=== PATIENT | female | born 1995 ===

== ENCOUNTER 2017-07-07 13:20 | Inpatient (IN) | payer OTHER ==
[~2017-07-07] VITALS: Ht 167.6 cm; Wt 55.8 kg
[2017-07-09] MEDS ORDERED: AMOX1TAB5 PO (15:00)
== END 2017-07-09 22:15 | disposition home or self-care (01) | DRG 343 ==
LOC: ER 13:20 → SEC-K 20:34 → O/R 23:45 → MEDJ 07-08 01:03
PROVIDERS: Surgery
PROC: BW21Y0Z Computerized Tomography (CT Scan) of Abdomen and Pelvis using Other Contrast, Unenhanced and Enhanced (ICD-10-PCS; 2017-07-07)
PROC: BW41ZZZ Ultrasonography of Abdomen and Pelvis (ICD-10-PCS; 2017-07-07)
PROC: 0DTJ0ZZ Resection of Appendix, Open Approach (ICD-10-PCS; principal; 2017-07-07 22:00)
PROC: 4A033R1 Measurement of Arterial Saturation, Peripheral, Percutaneous Approach (ICD-10-PCS; 2017-07-08)
PROC: BW24Y0Z Computerized Tomography (CT Scan) of Chest and Abdomen using Other Contrast, Unenhanced and Enhanced (ICD-10-PCS; 2017-07-08)
DX: K35.89 Other acute appendicitis (principal); R09.02 Hypoxemia